=== PATIENT | female | born 1980 | race African-American/Black ===

== ENCOUNTER 2018-01-12 11:55 | Inpatient (IN) | payer OTHER ==
[2018-01-12 13:47] VITALS: BMI 34.7
--- NOTE | 2018-01-12 14:23 | HP ---
Admission ROS [facility] Chief Complaint: REHAB TX FOR DRUG AND ALCOHOL ADDICTION Allergies/Adverse Reactions: Allergies Allergy/AdvReac Type Severity Reaction Status Date / Time onion Allergy Severe Hives Verified 01/12/18 13:51 History of Present Illness: 37 Y/O FEMALE WITH A HX OF ALCOHOL AND MARIJUANA DEPENDENCE AND SOMETIMES OPIATES SEEKING REHAB TX. PT WAS REFERRED HERE TO REHAB FROM [facility] WHERE SHE WAS INPATIENT FOR MENTAL HEALTH- FOR SUICIDAL IDEATION/ DEPRESSION FROM 12/24/17 TO 01/12/18. HX MDD WITH PSYCHOTIC FEATURES. Exam Limitations: No Limitations - Ebola screening Have you traveled outside of the country in the last 21 days: No Have you had contact with anyone from an Ebola affected area: No Have you been sick,other than usual withdrawal symptoms: No Do you have a fever: No - Review of Systems Constitutional: Changes in sleep (TAKES AMBIEN FOR SLEEP) EENT: reports: Dental Problems (BLEEDING GUMS/CAVITIES), Throat Swelling (WITH ALLERGY TO ONIONS) Respiratory: reports: No Symptoms reported Cardiac: reports: Lightheadedness GI: reports: Constipated, Poor Fluid Intake : reports: Burning Musculoskeletal: reports: Joint Pain (RIGHT KNEE CRACKS) Integumentary: reports: No Symptoms Reported Neuro: reports: Dizziness Endocrine: reports: No Symptoms Reported Hematology: reports: Anemia Psychiatric: reports: Orientated x3, Anxious, Depressed Other Systems: Reviewed and Negative Patient History - Patient Medical History Hx Anemia: Yes (NO MEDS) Hx Asthma: No Hx Chronic Obstructive Pulmonary Disease (COPD): No Hx Hypertension: No Hx Hypercholesterolemia: No HX Cerebrovascular Accident: No Hx Seizures: No Hx Diabetes: No Hx Gastrointestinal Disorders: Yes (HEARTBURN) Hx Sexually Transmitted Disorders: Yes (CHLAMYDIA [place]) Hx Thyroid Disease: Yes (POSSIBLE GOITER--DID NOT FOLLOW UP WITH ULTRASOUND SCHEDULE) Hx Human Immunodeficiency Virus (HIV): No (NEGATIVE HX) Hx Hepatitis C: No Hx Depression: Yes Hx Suicide Attempt: Yes (TIED WIRE ON NECK 2015;DENIES S/I TODAY.) Hx Bipolar Disorder: No Hx Schizophrenia: No - Patient Surgical History Past Surgical History: Yes Hx Section: Yes (IN 1997) Other Surgical History: TUBAL LIGATION IN 2001 Anesthesia Reaction: No - PPD History Previous Implant?: Yes Documented Results: Negative w/o proof Implanted On Prior [facility] Admission?: No PPD to be Administered?: Yes - Reproductive History Patient is a Female of Child Bearing Age (11 -55 yrs old): Yes Last Menstrual Period: 12/19/17 Patient : No - Smoking Cessation Smoking history: Current every day smoker Have you smoked in the past 12 months: Yes Aproximately how many cigarettes per day: 20 Hx Chewing Tobacco Use: No Initiated information on smoking cessation: Yes 'Breaking Loose' booklet given: 01/12/18 - Substance & Tx. History Hx Alcohol Use: Yes (VODKA/BEER) Hx Substance Use: Yes (MARIJUANA/HYDROCODONES/PERCOCETS) Substance Use Type: Alcohol, Marijuana, Opiates Hx Substance Use Treatment: Yes (LAST TX AT [facility]) - Substances Abused Alcohol Route: Oral Frequency: Daily Amount used: 1 pint Vodka and 120 oz beer Age of first use: 13 Date of Last Use: 10/01/17 Marijuana/Hashish Route: Smoking Frequency: Daily Amount used: $30 Age of first use: 16 Date of Last Use: 12/26/17 Family Disease History - Family Disease History Family Disease History: Heart Disease: Father (SD-), CA: Mother (BREAST CA-) Admission Physical Exam [facility] - Vital Signs Vital Signs: Vital Signs - 24 hr 01/12/18 13:44 Temperature 98.0 F Pulse Rate 90 Respiratory 20 Rate Blood Pressure 127/92 - Physical General Appearance: Yes: No Apparent Distress, Anxious HEENTM: Yes: EOMI, Normocephalic, DOM, Pharynx Normal Respiratory: Yes: Chest Non-Tender, Lungs Clear, Normal Breath Sounds, No Respiratory Distress Neck: Yes: Supple, Trachea in good position Breast: Yes: Breast Exam Deferred Cardiology: Yes: Regular Rhythm, Regular Rate, S1, S2 Abdominal: Yes: Normal Bowel Sounds, Non Tender, Flat Genitourinary: Yes: Other (N/C) Back: Yes: Within Normal Limits Musculoskeletal: Yes: full range of Motion, Gait Steady Extremities: Yes: Normal Range of Motion, Non-Tender Neurological: Yes: envelope folder [id number] NML intact, Fully Oriented, Alert, Motor Strength 5/5 Integumentary: Yes: Dry, Warm Lymphatic: Yes: Within Normal Limits - Diagnostic (1) Alcohol dependence with uncomplicated withdrawal Current Visit: Yes Status: Chronic (2) Cannabis dependence, uncomplicated Current Visit: Yes Status: Chronic (3) History of anemia Current Visit: Yes Status: Acute (4) Hx of major depression Current Visit: Yes Status: Chronic Cleared for Admission [facility] - Detox or Rehab Claeared for Rehab Admission: Yes [facility] Breath Alcohol Content Breath Alcohol Content: 0 Urine Drug Screen - Results Drug Screen Negative: Yes Urine Drug Screen Results: TCA-Tricyclic Antidepress Inpatient Rehab Admission - Initial Determination Are CD services needed?: Yes Free of communicable disease: Yes Not in need of hospitalization: Yes - Rehab Admission Criteria Patient is meeting Inpatient Rehab admission criteria:: Yes
[2018-01-12] MEDS ORDERED: MAGNESIUM CITRATE 300 ML BOTTLE PO PRN (14:54)
[2018-01-12] MEDS ORDERED: NICOTINE POLACRILEX 4 MG GUM BC PRN (14:54)
[2018-01-12] MEDS ORDERED: P-EPHED 60MG/TRIPROLIDI 2.5MG TABLET PO PRN (14:54)
[2018-01-12] MEDS ORDERED: ACETAMINOPHEN 325 MG TABLET (FP) PO PRN (14:54)
[2018-01-12] MEDS ORDERED: MAG HYDROX/AL HYDROX/SIMETH 30 ML UNIT-DOSE CUP PO PRN (14:54)
[2018-01-12] MEDS ORDERED: LOPERAMIDE HCL 2 MG CAPSULE PO PRN (14:54)
[2018-01-12] MEDS ORDERED: TUBERCULIN PPD 5 TU/0.1ML VIAL ID ONE (17:00)
[2018-01-12] MEDS: NICOTINE 21 MG/24 HOURS TOPICAL PATCH TD SCH (17:13)
--- NOTE | 2018-01-12 20:49 | PN ---
[facility] Progress Note Note: As per nursing report new admission medications are: Buspar 10mg po tid Seroquel XR 400mg po qhs Depakote 500mg po bid Wellbutrin 100mg po bid Medication list has been checked, medications ordered elecronically as per patient request.
[2018-01-12] MEDS: diphenhydrAMINE HCL 25 MG CAPSULE (FP) PO PRN (21:25)
[2018-01-12] MEDS: THIAMINE HCL 100 MG TABLET (FP) PO SCH (21:25)
[2018-01-12] MEDS: DIVALPROEX SODIUM 500 MG TABLET E.C. PO SCH (21:25)
[2018-01-12] MEDS: busPIRone HCL 10 MG TABLET (FP) PO SCH (21:25)
[2018-01-12] MEDS ORDERED: buPROPion HCL 100 MG TABLET PO SCH (22:00)
[2018-01-12 23:03] LABS: URINE APPEARANCE SLCLOUDY; URINE BILIRUBIN NEGATIVE (<2.0 mg/dL); URINE COLOR DKYELLOW; URINE GLUCOSE (UA) NEGATIVE (NEGATIVE); URINE KETONE NEGATIVE (NEGATIVE); URINE LEUK ESTERASE NEGATIVE (NEGATIVE); URINE NITRITE NEGATIVE (NEGATIVE); URINE PROTEIN NEGATIVE (NEGATIVE); URINE UROBILINOGEN NEGATIVE mg/dL (0.2-1.0)
[2018-01-13] MEDS: busPIRone HCL 10 MG TABLET (FP) PO SCH ×3 (06:11→21:43)
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
[2018-01-13] MEDS: DIVALPROEX SODIUM 500 MG TABLET E.C. PO SCH ×2 (10:03→21:43)
[2018-01-13] MEDS: PRENATAL VITAMINS W/ FOLIC ACID TABLET (FP) PO SCH (10:03)
[2018-01-13] MEDS: NICOTINE 21 MG/24 HOURS TOPICAL PATCH TD SCH (10:04)
[2018-01-13] MEDS: buPROPion HCL 100 MG TABLET PO SCH ×2 (10:29→21:43)
[2018-01-13 11:23] LABS: HEMATOCRIT 36.4 % (32.4-45.2); HEMOGLOBIN 11.8 GM/dL (10.7-15.3); MCH 23.2 pg (25.7-33.7); MCHC 32.4 g/dl (32.0-36.0); MEAN CELL VOLUME 71.6 fl (80-96); MEAN PLT VOLUME 10.7 fl (7.5-11.1); PLATELET COUNT 205 K/MM3 (134-434); RBC 5.09 M/mm3 (3.60-5.2); RDW 16.5 % (11.6-15.6); WHITE BLOOD COUNT 7.1 K/mm3 (4.0-10.0)
--- NOTE | 2018-01-13 11:25 | EKG ---
Test Reason : Blood Pressure : / mmHG Vent. Rate : 086 BPM Atrial Rate : 086 BPM P-R Int : 198 ms QRS Dur : 078 ms QT Int : 358 ms P-R-T Axes : 051 046 044 degrees QTc Int : 428 ms NORMAL SINUS RHYTHM NORMAL ECG WHEN COMPARED WITH ECG OF 12-JAN-2018 22:03, NO SIGNIFICANT CHANGE WAS FOUND Confirmed by ASHANTI ELIZONDO MD ([id number]) on 01/13/2018 11:24:49 AM Referred By: Elie TELLO Confirmed By:ASHANTI ELIZONDO MD
[2018-01-13 11:27] LABS: CHLORIDE 106 mmol/L (98-107); POTASSIUM 4.5 mmol/L (3.5-5.1); SODIUM 139 mmol/L (136-145)
[2018-01-13 11:41] LABS: ALBUMIN 3.7 g/dl (3.4-5.0); ALK PHOS 61 U/L (45-117); ANION GAP 6 (8-16); BLOOD UREA NITROGEN 15 mg/dL (7-18); CALCIUM 9.1 mg/dL (8.5-10.1); CO2 27 mmol/L (21-32); CREATININE 0.8 mg/dL (0.55-1.02); GLUCOSE,RANDOM 105 mg/dL (74-106); SGOT/AST 8 U/L (15-37); SGPT/ALT 8 U/L (12-78); TOT PROT 7.1 g/dl (6.4-8.2)
[2018-01-13 11:53] LABS: BILIRUBIN,TOTAL < 0.1 mg/dL (0.2-1.0)
[2018-01-13 11:58] LABS: SICKLE CELL SCREEN NEGATIVE (NEGATIVE)
--- NOTE | 2018-01-13 14:53 | PN ---
[facility] Progress Note Note: Patient c/o of pain after urination, which started yesterday. Denies any vaginal discharge or hematuria or frequency. Vital Signs Temperature 98.3 F 01/13/18 06:46 Pulse Rate 82 01/13/18 06:46 Respiratory Rate 18 01/13/18 06:46 Blood Pressure 101/80 01/13/18 06:46 O2 Sat by Pulse Oximetry (%) Laboratory Last Values WBC 7.1 K/mm3 (4.0-10.0) 01/13/18 06:00 RBC 5.09 M/mm3 (3.60-5.2) 01/13/18 06:00 Hgb 11.8 GM/dL (10.7-15.3) 01/13/18 06:00 Hct 36.4 % (32.4-45.2) 01/13/18 06:00 MCV 71.6 fl (80-96) L 01/13/18 06:00 MCH 23.2 pg (25.7-33.7) L 01/13/18 06:00 MCHC 32.4 g/dl (32.0-36.0) 01/13/18 06:00 RDW 16.5 % (11.6-15.6) H 01/13/18 06:00 Plt Count 205 K/MM3 (134-434) 01/13/18 06:00 MPV 10.7 fl (7.5-11.1) 01/13/18 06:00 Sickle Cell Screen Negative (NEGATIVE) 01/13/18 06:00 Sodium 139 mmol/L (136-145) 01/13/18 06:00 Potassium 4.5 mmol/L (3.5-5.1) 01/13/18 06:00 Chloride 106 mmol/L (98-107) 01/13/18 06:00 Carbon Dioxide 27 mmol/L (21-32) 01/13/18 06:00 Anion Gap 6 (8-16) L 01/13/18 06:00 BUN 15 mg/dL (7-18) 01/13/18 06:00 Creatinine 0.8 mg/dL (0.55-1.02) 01/13/18 06:00 Creat Clearance w eGFR > 60 (>60) 01/13/18 06:00 Random Glucose 105 mg/dL (74-106) 01/13/18 06:00 Calcium 9.1 mg/dL (8.5-10.1) 01/13/18 06:00 Total Bilirubin < 0.1 mg/dL (0.2-1.0) L 01/13/18 06:00 AST 8 U/L (15-37) L 01/13/18 06:00 ALT 8 U/L (12-78) L 01/13/18 06:00 Alkaline Phosphatase 61 U/L (45-117) 01/13/18 06:00 Total Protein 7.1 g/dl (6.4-8.2) 01/13/18 06:00 Albumin 3.7 g/dl (3.4-5.0) 01/13/18 06:00 Urine Color Dkyellow 01/12/18 22:48 Urine Appearance Slcloudy 01/12/18 22:48 Urine pH 7.0 (5.0-8.0) 01/12/18 22:48 Ur Specific [place] 1.029 (1.001-1.035) 01/12/18 22:48 Urine Protein Negative (NEGATIVE) 01/12/18 22:48 Urine Glucose (UA) Negative (NEGATIVE) 01/12/18 22:48 Urine Ketones Negative (NEGATIVE) 01/12/18 22:48 Urine Blood Negative (NEGATIVE) 01/12/18 22:48 Urine Nitrite Negative (NEGATIVE) 01/12/18 22:48 Urine Bilirubin Negative (<2.0 mg/dL) 01/12/18 22:48 Urine Urobilinogen Negative mg/dL (0.2-1.0) 01/12/18 22:48 Ur Leukocyte Esterase Negative (NEGATIVE) 01/12/18 22:48 Valproic Acid 96 ug/ml (50-100) 01/13/18 10:30 RPR Titer Nonreactive (NONREACTIVE) 01/13/18 06:00 Patient AOX3 , in no apparent distress No pelvic or abdominal tenderness + dysuria Plan: Increase fluids U/A continue to monitor
[2018-01-13 18:01] LABS: URINE APPEARANCE SLCLOUDY; URINE BILIRUBIN NEGATIVE (<2.0 mg/dL); URINE COLOR YELLOW; URINE GLUCOSE (UA) NEGATIVE (NEGATIVE); URINE KETONE TRACE (NEGATIVE); URINE LEUK ESTERASE NEGATIVE (NEGATIVE); URINE NITRITE NEGATIVE (NEGATIVE); URINE PROTEIN NEGATIVE (NEGATIVE); URINE UROBILINOGEN NEGATIVE mg/dL (0.2-1.0)
[2018-01-13] MEDS: THIAMINE HCL 100 MG TABLET (FP) PO SCH (21:43)
[2018-01-13] MEDS: MELATONIN 5 MG TABLETS PO PRN (21:44)
[2018-01-14] MEDS: busPIRone HCL 10 MG TABLET (FP) PO SCH ×3 (06:17→21:29)
[2018-01-14] MEDS: PRENATAL VITAMINS W/ FOLIC ACID TABLET (FP) PO SCH (10:11)
[2018-01-14] MEDS: DIVALPROEX SODIUM 500 MG TABLET E.C. PO SCH ×2 (10:11→21:29)
[2018-01-14] MEDS: buPROPion HCL 100 MG TABLET PO SCH ×2 (10:11→17:02)
[2018-01-14] MEDS: NICOTINE 21 MG/24 HOURS TOPICAL PATCH TD SCH (10:12)
[2018-01-14] MEDS: THIAMINE HCL 100 MG TABLET (FP) PO SCH (21:29)
[2018-01-14] MEDS: diphenhydrAMINE HCL 25 MG CAPSULE (FP) PO PRN (21:29)
[2018-01-14] MEDS: MAGNESIUM HYDROX 2400MG/30ML ORAL SUSPENSION 30 ML CUP PO PRN (21:31)
[2018-01-14] MEDS: MELATONIN 5 MG TABLETS PO PRN (21:31)
[2018-01-15] MEDS: busPIRone HCL 10 MG TABLET (FP) PO SCH ×3 (06:39→21:37)
[2018-01-15] MEDS: DIVALPROEX SODIUM 500 MG TABLET E.C. PO SCH ×2 (09:38→21:37)
[2018-01-15] MEDS: buPROPion HCL 100 MG TABLET PO SCH ×2 (09:38→18:03)
[2018-01-15] MEDS: PRENATAL VITAMINS W/ FOLIC ACID TABLET (FP) PO SCH (09:38)
[2018-01-15] MEDS: NICOTINE 21 MG/24 HOURS TOPICAL PATCH TD SCH (09:39)
[2018-01-15] MEDS: MAGNESIUM HYDROX 2400MG/30ML ORAL SUSPENSION 30 ML CUP PO PRN (09:40)
[2018-01-15] MEDS: MINERAL OIL/PETROLAT/WATER TOPICAL CREAM 454 GM JAR TP PRN (14:16)
[2018-01-15] MEDS ORDERED: PT OWN MED DRAWER 7, Y5N ONE (14:22)
[2018-01-15] MEDS: THIAMINE HCL 100 MG TABLET (FP) PO SCH (21:37)
[2018-01-16] MEDS: busPIRone HCL 10 MG TABLET (FP) PO SCH ×3 (06:45→21:46)
--- NOTE | 2018-01-16 08:33 | EKG ---
Test Reason : Blood Pressure : / mmHG Vent. Rate : 079 BPM Atrial Rate : 079 BPM P-R Int : 212 ms QRS Dur : 084 ms QT Int : 384 ms P-R-T Axes : 061 047 047 degrees QTc Int : 440 ms SINUS RHYTHM WITH 1ST DEGREE A-V BLOCK POSSIBLE LEFT ATRIAL ENLARGEMENT BORDERLINE ECG NO PREVIOUS ECGS AVAILABLE Confirmed by NAREN CRAFT MD ([id number]) on 01/16/2018 8:33:27 AM Referred By: Confirmed By:NAREN CRAFT MD
[2018-01-16] MEDS: NICOTINE 21 MG/24 HOURS TOPICAL PATCH TD SCH (10:09)
[2018-01-16] MEDS: DIVALPROEX SODIUM 500 MG TABLET E.C. PO SCH ×2 (10:09→21:46)
[2018-01-16] MEDS: buPROPion HCL 100 MG TABLET PO SCH ×2 (10:09→17:36)
[2018-01-16] MEDS: MINERAL OIL/PETROLAT/WATER TOPICAL CREAM 454 GM JAR TP PRN (10:09)
[2018-01-16] MEDS: PRENATAL VITAMINS W/ FOLIC ACID TABLET (FP) PO SCH (10:09)
[2018-01-16] MEDS: IBUPROFEN 400 MG TABLET (FP) PO PRN (19:38)
[2018-01-16] MEDS ORDERED: PT OWN MED DRAWER 7, Y5N ONE (19:55)
[2018-01-16] MEDS: THIAMINE HCL 100 MG TABLET (FP) PO SCH (21:45)
[2018-01-16] MEDS: MELATONIN 5 MG TABLETS PO PRN (21:47)
[2018-01-17] MEDS: busPIRone HCL 10 MG TABLET (FP) PO SCH ×3 (06:28→21:23)
[2018-01-17] MEDS: NICOTINE 21 MG/24 HOURS TOPICAL PATCH TD SCH (10:06)
[2018-01-17] MEDS: DIVALPROEX SODIUM 500 MG TABLET E.C. PO SCH ×2 (10:06→21:23)
[2018-01-17] MEDS: PRENATAL VITAMINS W/ FOLIC ACID TABLET (FP) PO SCH (10:07)
[2018-01-17] MEDS: buPROPion HCL 100 MG TABLET PO SCH ×2 (10:07→17:22)
[2018-01-17] MEDS: MELATONIN 5 MG TABLETS PO PRN (21:23)
[2018-01-17] MEDS: THIAMINE HCL 100 MG TABLET (FP) PO SCH (21:23)
[2018-01-18] MEDS: busPIRone HCL 10 MG TABLET (FP) PO SCH ×3 (06:18→21:29)
[2018-01-18] MEDS: DIVALPROEX SODIUM 500 MG TABLET E.C. PO SCH ×2 (09:58→21:29)
[2018-01-18] MEDS: NICOTINE 21 MG/24 HOURS TOPICAL PATCH TD SCH (09:58)
[2018-01-18] MEDS: buPROPion HCL 100 MG TABLET PO SCH ×2 (09:58→17:03)
[2018-01-18] MEDS: PRENATAL VITAMINS W/ FOLIC ACID TABLET (FP) PO SCH (09:58)
[2018-01-18] MEDS: MINERAL OIL/PETROLAT/WATER TOPICAL CREAM 454 GM JAR TP PRN (10:00)
[2018-01-18] MEDS ORDERED: PT OWN MED DRAWER 7, Y5N ONE (10:00)
[2018-01-18] MEDS: MELATONIN 5 MG TABLETS PO PRN (21:29)
[2018-01-18] MEDS: diphenhydrAMINE HCL 25 MG CAPSULE (FP) PO PRN (21:29)
[2018-01-18] MEDS: THIAMINE HCL 100 MG TABLET (FP) PO SCH (21:29)
[2018-01-19] MEDS: busPIRone HCL 10 MG TABLET (FP) PO SCH ×3 (06:15→21:30)
[2018-01-19] MEDS: buPROPion HCL 100 MG TABLET PO SCH ×2 (09:47→17:08)
[2018-01-19] MEDS: DIVALPROEX SODIUM 500 MG TABLET E.C. PO SCH ×2 (09:47→21:29)
[2018-01-19] MEDS: PRENATAL VITAMINS W/ FOLIC ACID TABLET (FP) PO SCH (09:47)
[2018-01-19] MEDS: NICOTINE 21 MG/24 HOURS TOPICAL PATCH TD SCH (09:48)
[2018-01-19] MEDS: MAGNESIUM HYDROX 2400MG/30ML ORAL SUSPENSION 30 ML CUP PO PRN (17:09)
[2018-01-19] MEDS ORDERED: PT OWN MED DRAWER 7, Y5N ONE (20:27)
[2018-01-19] MEDS: THIAMINE HCL 100 MG TABLET (FP) PO SCH (21:30)
[2018-01-19] MEDS: MELATONIN 5 MG TABLETS PO PRN (21:30)
[2018-01-19] MEDS: diphenhydrAMINE HCL 25 MG CAPSULE (FP) PO PRN (21:30)
[2018-01-20] MEDS: busPIRone HCL 10 MG TABLET (FP) PO SCH ×3 (06:26→21:21)
[2018-01-20] MEDS: IBUPROFEN 400 MG TABLET (FP) PO PRN ×3 (06:26→17:51)
[2018-01-20] MEDS: NICOTINE 21 MG/24 HOURS TOPICAL PATCH TD SCH (09:52)
[2018-01-20] MEDS: MINERAL OIL/PETROLAT/WATER TOPICAL CREAM 454 GM JAR TP PRN (09:52)
[2018-01-20] MEDS: DIVALPROEX SODIUM 500 MG TABLET E.C. PO SCH ×2 (09:52→21:21)
[2018-01-20] MEDS: buPROPion HCL 100 MG TABLET PO SCH ×2 (09:52→17:51)
[2018-01-20] MEDS: PRENATAL VITAMINS W/ FOLIC ACID TABLET (FP) PO SCH (09:52)
[2018-01-20] MEDS: MAGNESIUM HYDROX 2400MG/30ML ORAL SUSPENSION 30 ML CUP PO PRN (13:45)
[2018-01-20] MEDS ORDERED: PT OWN MED DRAWER 7, Y5N ONE (20:35)
[2018-01-20] MEDS: diphenhydrAMINE HCL 25 MG CAPSULE (FP) PO PRN (21:21)
[2018-01-20] MEDS: THIAMINE HCL 100 MG TABLET (FP) PO SCH (21:21)
[2018-01-20] MEDS: MELATONIN 5 MG TABLETS PO PRN (21:21)
[2018-01-21] MEDS: IBUPROFEN 400 MG TABLET (FP) PO PRN (06:25)
[2018-01-21] MEDS: busPIRone HCL 10 MG TABLET (FP) PO SCH ×3 (06:25→21:30)
[2018-01-21] MEDS: DIVALPROEX SODIUM 500 MG TABLET E.C. PO SCH ×2 (10:01→21:30)
[2018-01-21] MEDS: buPROPion HCL 100 MG TABLET PO SCH ×2 (10:01→17:06)
[2018-01-21] MEDS: PRENATAL VITAMINS W/ FOLIC ACID TABLET (FP) PO SCH (10:01)
[2018-01-21] MEDS: NICOTINE 21 MG/24 HOURS TOPICAL PATCH TD SCH (10:02)
[2018-01-21] MEDS ORDERED: PT OWN MED DRAWER 7, Y5N ONE (19:41)
[2018-01-21] MEDS: MELATONIN 5 MG TABLETS PO PRN (21:30)
[2018-01-21] MEDS: diphenhydrAMINE HCL 25 MG CAPSULE (FP) PO PRN (21:30)
[2018-01-21] MEDS: THIAMINE HCL 100 MG TABLET (FP) PO SCH (21:30)
[2018-01-22] MEDS: busPIRone HCL 10 MG TABLET (FP) PO SCH ×3 (05:59→21:27)
[2018-01-22] MEDS: buPROPion HCL 100 MG TABLET PO SCH ×2 (10:02→17:01)
[2018-01-22] MEDS: PRENATAL VITAMINS W/ FOLIC ACID TABLET (FP) PO SCH (10:02)
[2018-01-22] MEDS: DIVALPROEX SODIUM 500 MG TABLET E.C. PO SCH ×2 (10:02→21:27)
[2018-01-22] MEDS: NICOTINE 21 MG/24 HOURS TOPICAL PATCH TD SCH (10:03)
[2018-01-22] MEDS: THIAMINE HCL 100 MG TABLET (FP) PO SCH (21:27)
[2018-01-22] MEDS: diphenhydrAMINE HCL 25 MG CAPSULE (FP) PO PRN (21:27)
[2018-01-22] MEDS: MELATONIN 5 MG TABLETS PO PRN (21:27)
[2018-01-23] MEDS: busPIRone HCL 10 MG TABLET (FP) PO SCH ×3 (06:00→21:23)
[2018-01-23] MEDS: PRENATAL VITAMINS W/ FOLIC ACID TABLET (FP) PO SCH (09:54)
[2018-01-23] MEDS: buPROPion HCL 100 MG TABLET PO SCH ×2 (09:54→18:01)
[2018-01-23] MEDS: DIVALPROEX SODIUM 500 MG TABLET E.C. PO SCH ×2 (09:54→21:23)
[2018-01-23] MEDS: NICOTINE 21 MG/24 HOURS TOPICAL PATCH TD SCH (09:55)
[2018-01-23] MEDS: IBUPROFEN 400 MG TABLET (FP) PO PRN (12:01)
[2018-01-23] MEDS ORDERED: PT OWN MED DRAWER 7, Y5N ONE (21:20)
[2018-01-23] MEDS: MINERAL OIL/PETROLAT/WATER TOPICAL CREAM 454 GM JAR TP PRN (21:22)
[2018-01-23] MEDS: THIAMINE HCL 100 MG TABLET (FP) PO SCH (21:22)
[2018-01-23] MEDS: MELATONIN 5 MG TABLETS PO PRN (21:22)
[2018-01-23] MEDS: diphenhydrAMINE HCL 25 MG CAPSULE (FP) PO PRN (21:23)
[2018-01-24] MEDS: busPIRone HCL 10 MG TABLET (FP) PO SCH ×3 (06:30→21:21)
[2018-01-24] MEDS: PRENATAL VITAMINS W/ FOLIC ACID TABLET (FP) PO SCH (09:53)
[2018-01-24] MEDS: DIVALPROEX SODIUM 500 MG TABLET E.C. PO SCH ×2 (09:53→21:21)
[2018-01-24] MEDS: buPROPion HCL 100 MG TABLET PO SCH ×2 (09:54→17:39)
[2018-01-24] MEDS: MINERAL OIL/PETROLAT/WATER TOPICAL CREAM 454 GM JAR TP PRN (09:54)
[2018-01-24] MEDS: NICOTINE 21 MG/24 HOURS TOPICAL PATCH TD SCH (09:54)
[2018-01-24] MEDS: diphenhydrAMINE HCL 25 MG CAPSULE (FP) PO PRN (21:21)
[2018-01-24] MEDS: THIAMINE HCL 100 MG TABLET (FP) PO SCH (21:21)
[2018-01-24] MEDS: MELATONIN 5 MG TABLETS PO PRN (21:21)
[2018-01-25] MEDS: busPIRone HCL 10 MG TABLET (FP) PO SCH ×3 (06:33→21:36)
[2018-01-25] MEDS: DIVALPROEX SODIUM 500 MG TABLET E.C. PO SCH ×2 (09:57→21:36)
[2018-01-25] MEDS: NICOTINE 21 MG/24 HOURS TOPICAL PATCH TD SCH (09:57)
[2018-01-25] MEDS: PRENATAL VITAMINS W/ FOLIC ACID TABLET (FP) PO SCH (09:57)
[2018-01-25] MEDS: buPROPion HCL 100 MG TABLET PO SCH ×2 (09:57→18:03)
[2018-01-25] MEDS: MAGNESIUM HYDROX 2400MG/30ML ORAL SUSPENSION 30 ML CUP PO PRN (18:04)
[2018-01-25] MEDS: THIAMINE HCL 100 MG TABLET (FP) PO SCH (21:36)
[2018-01-25] MEDS: MELATONIN 5 MG TABLETS PO PRN (21:37)
[2018-01-26] MEDS: busPIRone HCL 10 MG TABLET (FP) PO SCH ×3 (06:45→21:39)
[2018-01-26] MEDS: PRENATAL VITAMINS W/ FOLIC ACID TABLET (FP) PO SCH (10:05)
[2018-01-26] MEDS: buPROPion HCL 100 MG TABLET PO SCH ×2 (10:05→17:05)
[2018-01-26] MEDS: DIVALPROEX SODIUM 500 MG TABLET E.C. PO SCH ×2 (10:05→21:39)
[2018-01-26] MEDS: MINERAL OIL/PETROLAT/WATER TOPICAL CREAM 454 GM JAR TP PRN (10:06)
[2018-01-26] MEDS ORDERED: PT OWN MED DRAWER 7, Y5N ONE (10:07)
[2018-01-26] MEDS: NICOTINE 21 MG/24 HOURS TOPICAL PATCH TD SCH (10:07)
[2018-01-26] MEDS: MELATONIN 5 MG TABLETS PO PRN (21:39)
[2018-01-26] MEDS: diphenhydrAMINE HCL 25 MG CAPSULE (FP) PO PRN (21:39)
[2018-01-26] MEDS: THIAMINE HCL 100 MG TABLET (FP) PO SCH (21:39)
[2018-01-27] MEDS: busPIRone HCL 10 MG TABLET (FP) PO SCH ×3 (06:46→21:31)
[2018-01-27] MEDS: DIVALPROEX SODIUM 500 MG TABLET E.C. PO SCH ×2 (10:25→21:31)
[2018-01-27] MEDS: buPROPion HCL 100 MG TABLET PO SCH ×2 (10:25→17:48)
[2018-01-27] MEDS: PRENATAL VITAMINS W/ FOLIC ACID TABLET (FP) PO SCH (10:25)
[2018-01-27] MEDS: NICOTINE 21 MG/24 HOURS TOPICAL PATCH TD SCH (10:27)
[2018-01-27] MEDS ORDERED: BENZOCAINE 20 % GEL 9 GM TUBE MM PRN (14:42)
--- NOTE | 2018-01-27 14:44 | PN ---
S Progress Note Note: c/o sensitive teeth and gums. Vital Signs Temperature 97.3 F L 01/27/18 06:48 Pulse Rate 97 H 01/27/18 06:48 Respiratory Rate 18 01/27/18 06:48 Blood Pressure 121/78 01/27/18 06:48 O2 Sat by Pulse Oximetry (%) Laboratory Last Values WBC 7.1 K/mm3 (4.0-10.0) 01/13/18 06:00 RBC 5.09 M/mm3 (3.60-5.2) 01/13/18 06:00 Hgb 11.8 GM/dL (10.7-15.3) 01/13/18 06:00 Hct 36.4 % (32.4-45.2) 01/13/18 06:00 MCV 71.6 fl (80-96) L 01/13/18 06:00 MCH 23.2 pg (25.7-33.7) L 01/13/18 06:00 MCHC 32.4 g/dl (32.0-36.0) 01/13/18 06:00 RDW 16.5 % (11.6-15.6) H 01/13/18 06:00 Plt Count 205 K/MM3 (134-434) 01/13/18 06:00 MPV 10.7 fl (7.5-11.1) 01/13/18 06:00 Sickle Cell Screen Negative (NEGATIVE) 01/13/18 06:00 Sodium 139 mmol/L (136-145) 01/13/18 06:00 Potassium 4.5 mmol/L (3.5-5.1) 01/13/18 06:00 Chloride 106 mmol/L (98-107) 01/13/18 06:00 Carbon Dioxide 27 mmol/L (21-32) 01/13/18 06:00 Anion Gap 6 (8-16) L 01/13/18 06:00 BUN 15 mg/dL (7-18) 01/13/18 06:00 Creatinine 0.8 mg/dL (0.55-1.02) 01/13/18 06:00 Creat Clearance w eGFR > 60 (>60) 01/13/18 06:00 Random Glucose 105 mg/dL (74-106) 01/13/18 06:00 Calcium 9.1 mg/dL (8.5-10.1) 01/13/18 06:00 Total Bilirubin < 0.1 mg/dL (0.2-1.0) L 01/13/18 06:00 AST 8 U/L (15-37) L 01/13/18 06:00 ALT 8 U/L (12-78) L 01/13/18 06:00 Alkaline Phosphatase 61 U/L (45-117) 01/13/18 06:00 Total Protein 7.1 g/dl (6.4-8.2) 01/13/18 06:00 Albumin 3.7 g/dl (3.4-5.0) 01/13/18 06:00 Urine Color Yellow 01/13/18 14:45 Urine Appearance Slcloudy 01/13/18 14:45 Urine pH 7.0 (5.0-8.0) 01/13/18 14:45 Ur Specific [place] 1.021 (1.001-1.035) 01/13/18 14:45 Urine Protein Negative (NEGATIVE) 01/13/18 14:45 Urine Glucose (UA) Negative (NEGATIVE) 01/13/18 14:45 Urine Ketones Trace (NEGATIVE) H 01/13/18 14:45 Urine Blood Negative (NEGATIVE) 01/13/18 14:45 Urine Nitrite Negative (NEGATIVE) 01/13/18 14:45 Urine Bilirubin Negative (<2.0 mg/dL) 01/13/18 14:45 Urine Urobilinogen Negative mg/dL (0.2-1.0) 01/13/18 14:45 Ur Leukocyte Esterase Negative (NEGATIVE) 01/13/18 14:45 Valproic Acid 96 ug/ml (50-100) 01/13/18 10:30 RPR Titer Nonreactive (NONREACTIVE) 01/13/18 06:00 anbesol PRN Continue to monitor
[2018-01-27] MEDS ORDERED: PT OWN MED DRAWER 7, Y5N ONE (20:35)
[2018-01-27] MEDS: THIAMINE HCL 100 MG TABLET (FP) PO SCH (21:31)
[2018-01-27] MEDS: MELATONIN 5 MG TABLETS PO PRN (21:32)
[2018-01-28] MEDS: busPIRone HCL 10 MG TABLET (FP) PO SCH ×3 (06:37→21:41)
[2018-01-28] MEDS: buPROPion HCL 100 MG TABLET PO SCH ×2 (10:25→17:10)
[2018-01-28] MEDS: NICOTINE 21 MG/24 HOURS TOPICAL PATCH TD SCH (10:25)
[2018-01-28] MEDS: DIVALPROEX SODIUM 500 MG TABLET E.C. PO SCH ×2 (10:25→21:41)
[2018-01-28] MEDS: MINERAL OIL/PETROLAT/WATER TOPICAL CREAM 454 GM JAR TP PRN (10:25)
[2018-01-28] MEDS: PRENATAL VITAMINS W/ FOLIC ACID TABLET (FP) PO SCH (10:25)
[2018-01-28] MEDS ORDERED: PT OWN MED DRAWER 7, Y5N ONE (20:43)
[2018-01-28] MEDS: THIAMINE HCL 100 MG TABLET (FP) PO SCH (21:41)
[2018-01-28] MEDS: diphenhydrAMINE HCL 25 MG CAPSULE (FP) PO PRN (21:41)
[2018-01-28] MEDS: MELATONIN 5 MG TABLETS PO PRN (21:41)
[2018-01-29] MEDS: busPIRone HCL 10 MG TABLET (FP) PO SCH ×3 (06:36→21:50)
[2018-01-29] MEDS: buPROPion HCL 100 MG TABLET PO SCH ×2 (10:13→17:29)
[2018-01-29] MEDS: DIVALPROEX SODIUM 500 MG TABLET E.C. PO SCH ×2 (10:13→21:50)
[2018-01-29] MEDS: PRENATAL VITAMINS W/ FOLIC ACID TABLET (FP) PO SCH (10:13)
[2018-01-29] MEDS: NICOTINE 21 MG/24 HOURS TOPICAL PATCH TD SCH (10:13)
[2018-01-29] MEDS ORDERED: PT OWN MED DRAWER 7, Y5N ONE (19:21)
[2018-01-29] MEDS: THIAMINE HCL 100 MG TABLET (FP) PO SCH (21:50)
[2018-01-29] MEDS: MELATONIN 5 MG TABLETS PO PRN (21:50)
[2018-01-29] MEDS: diphenhydrAMINE HCL 25 MG CAPSULE (FP) PO PRN (21:50)
[2018-01-30] MEDS: busPIRone HCL 10 MG TABLET (FP) PO SCH ×3 (06:31→21:41)
[2018-01-30] MEDS: MENTHOL/PHENOL 1 EACH UD MM PRN ×2 (06:33→17:52)
[2018-01-30] MEDS: buPROPion HCL 100 MG TABLET PO SCH ×2 (10:29→17:52)
[2018-01-30] MEDS: PRENATAL VITAMINS W/ FOLIC ACID TABLET (FP) PO SCH (10:29)
[2018-01-30] MEDS: DIVALPROEX SODIUM 500 MG TABLET E.C. PO SCH ×2 (10:29→21:41)
[2018-01-30] MEDS: NICOTINE 21 MG/24 HOURS TOPICAL PATCH TD SCH (10:29)
[2018-01-30] MEDS: MINERAL OIL/PETROLAT/WATER TOPICAL CREAM 454 GM JAR TP PRN (10:30)
[2018-01-30] MEDS: THIAMINE HCL 100 MG TABLET (FP) PO SCH (21:41)
[2018-01-30] MEDS: diphenhydrAMINE HCL 25 MG CAPSULE (FP) PO PRN (21:42)
[2018-01-31] MEDS: busPIRone HCL 10 MG TABLET (FP) PO SCH ×3 (05:58→21:25)
[2018-01-31] MEDS: PRENATAL VITAMINS W/ FOLIC ACID TABLET (FP) PO SCH (10:03)
[2018-01-31] MEDS: DIVALPROEX SODIUM 500 MG TABLET E.C. PO SCH ×2 (10:03→21:25)
[2018-01-31] MEDS: buPROPion HCL 100 MG TABLET PO SCH ×2 (10:03→17:01)
[2018-01-31] MEDS ORDERED: PT OWN MED DRAWER 7, Y5N ONE (10:04)
[2018-01-31] MEDS: MINERAL OIL/PETROLAT/WATER TOPICAL CREAM 454 GM JAR TP PRN (10:07)
[2018-01-31] MEDS: NICOTINE 21 MG/24 HOURS TOPICAL PATCH TD SCH (10:07)
[2018-01-31] MEDS: guaiFENesin/D-METHORPHAN HB 10 ML UNIT-DOSE CUPS PO PRN (21:25)
[2018-01-31] MEDS: MELATONIN 5 MG TABLETS PO PRN (21:25)
[2018-01-31] MEDS: diphenhydrAMINE HCL 25 MG CAPSULE (FP) PO PRN (21:25)
[2018-01-31] MEDS: THIAMINE HCL 100 MG TABLET (FP) PO SCH (21:25)
[2018-02-01] MEDS: busPIRone HCL 10 MG TABLET (FP) PO SCH ×3 (06:40→21:47)
[2018-02-01] MEDS: guaiFENesin/D-METHORPHAN HB 10 ML UNIT-DOSE CUPS PO PRN ×2 (06:41→17:47)
[2018-02-01] MEDS: DIVALPROEX SODIUM 500 MG TABLET E.C. PO SCH ×2 (10:08→21:47)
[2018-02-01] MEDS: PRENATAL VITAMINS W/ FOLIC ACID TABLET (FP) PO SCH (10:08)
[2018-02-01] MEDS: buPROPion HCL 100 MG TABLET PO SCH ×2 (10:08→17:46)
[2018-02-01] MEDS: NICOTINE 21 MG/24 HOURS TOPICAL PATCH TD SCH (10:09)
[2018-02-01] MEDS ORDERED: PT OWN MED DRAWER 7, Y5N ONE ×2 (12:59→18:19)
--- NOTE | 2018-02-01 15:54 | PN ---
[facility] Progress Note Note: c/o of sore throat and constant coughing Vital Signs Temperature 96.9 F L 02/01/18 07:15 Pulse Rate 93 H 02/01/18 07:15 Respiratory Rate 20 02/01/18 07:15 Blood Pressure 109/72 02/01/18 07:15 O2 Sat by Pulse Oximetry (%) Laboratory Last Values WBC 7.1 K/mm3 (4.0-10.0) 01/13/18 06:00 RBC 5.09 M/mm3 (3.60-5.2) 01/13/18 06:00 Hgb 11.8 GM/dL (10.7-15.3) 01/13/18 06:00 Hct 36.4 % (32.4-45.2) 01/13/18 06:00 MCV 71.6 fl (80-96) L 01/13/18 06:00 MCH 23.2 pg (25.7-33.7) L 01/13/18 06:00 MCHC 32.4 g/dl (32.0-36.0) 01/13/18 06:00 RDW 16.5 % (11.6-15.6) H 01/13/18 06:00 Plt Count 205 K/MM3 (134-434) 01/13/18 06:00 MPV 10.7 fl (7.5-11.1) 01/13/18 06:00 Sickle Cell Screen Negative (NEGATIVE) 01/13/18 06:00 Sodium 139 mmol/L (136-145) 01/13/18 06:00 Potassium 4.5 mmol/L (3.5-5.1) 01/13/18 06:00 Chloride 106 mmol/L (98-107) 01/13/18 06:00 Carbon Dioxide 27 mmol/L (21-32) 01/13/18 06:00 Anion Gap 6 (8-16) L 01/13/18 06:00 BUN 15 mg/dL (7-18) 01/13/18 06:00 Creatinine 0.8 mg/dL (0.55-1.02) 01/13/18 06:00 Creat Clearance w eGFR > 60 (>60) 01/13/18 06:00 Random Glucose 105 mg/dL (74-106) 01/13/18 06:00 Calcium 9.1 mg/dL (8.5-10.1) 01/13/18 06:00 Total Bilirubin < 0.1 mg/dL (0.2-1.0) L 01/13/18 06:00 AST 8 U/L (15-37) L 01/13/18 06:00 ALT 8 U/L (12-78) L 01/13/18 06:00 Alkaline Phosphatase 61 U/L (45-117) 01/13/18 06:00 Total Protein 7.1 g/dl (6.4-8.2) 01/13/18 06:00 Albumin 3.7 g/dl (3.4-5.0) 01/13/18 06:00 Urine Color Yellow 01/13/18 14:45 Urine Appearance Slcloudy 01/13/18 14:45 Urine pH 7.0 (5.0-8.0) 01/13/18 14:45 Ur Specific [place] 1.021 (1.001-1.035) 01/13/18 14:45 Urine Protein Negative (NEGATIVE) 01/13/18 14:45 Urine Glucose (UA) Negative (NEGATIVE) 01/13/18 14:45 Urine Ketones Trace (NEGATIVE) H 01/13/18 14:45 Urine Blood Negative (NEGATIVE) 01/13/18 14:45 Urine Nitrite Negative (NEGATIVE) 01/13/18 14:45 Urine Bilirubin Negative (<2.0 mg/dL) 01/13/18 14:45 Urine Urobilinogen Negative mg/dL (0.2-1.0) 01/13/18 14:45 Ur Leukocyte Esterase Negative (NEGATIVE) 01/13/18 14:45 Valproic Acid 96 ug/ml (50-100) 01/13/18 10:30 RPR Titer Nonreactive (NONREACTIVE) 01/13/18 06:00 Sore throat Plan: Throat culture Peridex wash BID PRN Guafinessin 10 ml PRN Increase fluids Continue to monitor
[2018-02-01] MEDS: THIAMINE HCL 100 MG TABLET (FP) PO SCH (21:46)
[2018-02-01] MEDS: CHLORHEXIDINE GLUCONATE 0.12% 15ML CUP MM SCH (21:48)
[2018-02-02] MEDS: busPIRone HCL 10 MG TABLET (FP) PO SCH ×3 (06:39→21:39)
[2018-02-02] MEDS: buPROPion HCL 100 MG TABLET PO SCH ×2 (10:10→17:08)
[2018-02-02] MEDS: CHLORHEXIDINE GLUCONATE 0.12% 15ML CUP MM SCH ×2 (10:11→21:39)
[2018-02-02] MEDS: PRENATAL VITAMINS W/ FOLIC ACID TABLET (FP) PO SCH (10:11)
[2018-02-02] MEDS: NICOTINE 21 MG/24 HOURS TOPICAL PATCH TD SCH (10:11)
[2018-02-02] MEDS: DIVALPROEX SODIUM 500 MG TABLET E.C. PO SCH ×2 (10:11→21:39)
[2018-02-02] MEDS ORDERED: PT OWN MED DRAWER 7, Y5N ONE (11:29)
--- NOTE | 2018-02-02 15:07 | PN ---
[facility] Progress Note Note: Patient continues to c/o sore throat and cough with green sputum. Addressed by [employer] yesterday and throat culture ordered. Results pending. Pt has history of nicotine dependence. Laboratory Tests 01/12/18 01/13/18 01/13/18 22:48 06:00 06:00 WBC 7.1 RBC 5.09 Hgb 11.8 Hct 36.4 MCV 71.6 L MCH 23.2 L MCHC 32.4 RDW 16.5 H Plt Count 205 MPV 10.7 Sickle Cell Screen Negative Sodium 139 Potassium 4.5 Chloride 106 Carbon Dioxide 27 Anion Gap 6 L BUN 15 Creatinine 0.8 Creat Clearance w eGFR > 60 Random Glucose 105 Calcium 9.1 Total Bilirubin < 0.1 L AST 8 L ALT 8 L Alkaline Phosphatase 61 Total Protein 7.1 Albumin 3.7 Urine Color Dkyellow Urine Appearance Slcloudy Urine pH 7.0 Ur Specific [place] 1.029 Urine Protein Negative Urine Glucose (UA) Negative Urine Ketones Negative Urine Blood Negative Urine Nitrite Negative Urine Bilirubin Negative Urine Urobilinogen Negative Ur Leukocyte Esterase Negative Valproic Acid RPR Titer 01/13/18 01/13/18 01/13/18 06:00 10:30 14:45 WBC RBC Hgb Hct MCV MCH MCHC RDW Plt Count MPV Sickle Cell Screen Sodium Potassium Chloride Carbon Dioxide Anion Gap BUN Creatinine Creat Clearance w eGFR Random Glucose Calcium Total Bilirubin AST ALT Alkaline Phosphatase Total Protein Albumin Urine Color Yellow Urine Appearance Slcloudy Urine pH 7.0 Ur Specific [place] 1.021 Urine Protein Negative Urine Glucose (UA) Negative Urine Ketones Trace H Urine Blood Negative Urine Nitrite Negative Urine Bilirubin Negative Urine Urobilinogen Negative Ur Leukocyte Esterase Negative Valproic Acid 96 RPR Titer Nonreactive Vital Signs Temperature 97.3 F L 02/02/18 06:58 Pulse Rate 105 H 02/02/18 06:58 Respiratory Rate 20 02/02/18 06:58 Blood Pressure 114/79 02/02/18 06:58 O2 Sat by Pulse Oximetry (%) Obj: General: alert and oriented x 3. In no acute distress ENT:+PERRLA, +nasal congestion, Pharynx pink and moist Skin: afebrile. Warm and dry Car: S1S2. Resp: faint scattered wheezes, no rales. A/P: Productive cough Pharyngitis Will continue current treatment add Augmentin 875mg BID x 7 days continue to monitor clinically
[2018-02-02] MEDS: AMOX TR/POT CLAV 875MG/125MG TABLETS (FP) PO SCH (17:08)
[2018-02-02] MEDS: MENTHOL/PHENOL 1 EACH UD MM PRN (19:43)
[2018-02-02] MEDS: guaiFENesin/D-METHORPHAN HB 10 ML UNIT-DOSE CUPS PO PRN (19:43)
[2018-02-02] MEDS: THIAMINE HCL 100 MG TABLET (FP) PO SCH (21:39)
[2018-02-02] MEDS: hydrOXYzine PAMOATE 50 MG CAPSULE (FP) PO PRN (21:40)
[2018-02-03] MEDS: busPIRone HCL 10 MG TABLET (FP) PO SCH ×3 (06:20→21:31)
[2018-02-03] MEDS: AMOX TR/POT CLAV 875MG/125MG TABLETS (FP) PO SCH ×2 (07:04→17:47)
[2018-02-03] MEDS: NICOTINE 21 MG/24 HOURS TOPICAL PATCH TD SCH (10:02)
[2018-02-03] MEDS: PRENATAL VITAMINS W/ FOLIC ACID TABLET (FP) PO SCH (10:02)
[2018-02-03] MEDS: DIVALPROEX SODIUM 500 MG TABLET E.C. PO SCH ×2 (10:02→21:30)
[2018-02-03] MEDS: CHLORHEXIDINE GLUCONATE 0.12% 15ML CUP MM SCH ×2 (10:02→21:30)
[2018-02-03] MEDS: buPROPion HCL 100 MG TABLET PO SCH ×2 (10:02→17:47)
[2018-02-03] MEDS: MINERAL OIL/PETROLAT/WATER TOPICAL CREAM 454 GM JAR TP PRN (10:04)
[2018-02-03] MEDS ORDERED: PT OWN MED DRAWER 7, Y5N ONE (20:18)
[2018-02-03] MEDS: THIAMINE HCL 100 MG TABLET (FP) PO SCH (21:31)
[2018-02-03] MEDS: hydrOXYzine PAMOATE 50 MG CAPSULE (FP) PO PRN (21:32)
[2018-02-04] MEDS: busPIRone HCL 10 MG TABLET (FP) PO SCH ×3 (06:37→21:29)
[2018-02-04] MEDS: guaiFENesin/D-METHORPHAN HB 10 ML UNIT-DOSE CUPS PO PRN (06:39)
[2018-02-04] MEDS: AMOX TR/POT CLAV 875MG/125MG TABLETS (FP) PO SCH ×2 (07:07→18:23)
[2018-02-04] MEDS: NICOTINE 21 MG/24 HOURS TOPICAL PATCH TD SCH (10:05)
[2018-02-04] MEDS: PRENATAL VITAMINS W/ FOLIC ACID TABLET (FP) PO SCH (10:05)
[2018-02-04] MEDS: DIVALPROEX SODIUM 500 MG TABLET E.C. PO SCH ×2 (10:05→21:28)
[2018-02-04] MEDS: CHLORHEXIDINE GLUCONATE 0.12% 15ML CUP MM SCH ×2 (10:05→21:28)
[2018-02-04] MEDS: buPROPion HCL 100 MG TABLET PO SCH ×2 (10:05→18:22)
[2018-02-04] MEDS: THIAMINE HCL 100 MG TABLET (FP) PO SCH (21:28)
[2018-02-04] MEDS: hydrOXYzine PAMOATE 50 MG CAPSULE (FP) PO PRN (21:29)
[2018-02-05] MEDS: busPIRone HCL 10 MG TABLET (FP) PO SCH ×3 (06:25→21:31)
[2018-02-05] MEDS: AMOX TR/POT CLAV 875MG/125MG TABLETS (FP) PO SCH ×2 (07:05→17:09)
[2018-02-05] MEDS: DIVALPROEX SODIUM 500 MG TABLET E.C. PO SCH ×2 (10:32→21:31)
[2018-02-05] MEDS: buPROPion HCL 100 MG TABLET PO SCH ×2 (10:32→17:09)
[2018-02-05] MEDS: PRENATAL VITAMINS W/ FOLIC ACID TABLET (FP) PO SCH (10:32)
[2018-02-05] MEDS: NICOTINE 21 MG/24 HOURS TOPICAL PATCH TD SCH (10:32)
[2018-02-05] MEDS: CHLORHEXIDINE GLUCONATE 0.12% 15ML CUP MM SCH ×2 (10:42→21:32)
[2018-02-05] MEDS: THIAMINE HCL 100 MG TABLET (FP) PO SCH (21:31)
[2018-02-05] MEDS: hydrOXYzine PAMOATE 50 MG CAPSULE (FP) PO PRN (21:32)
[2018-02-06] MEDS: busPIRone HCL 10 MG TABLET (FP) PO SCH ×3 (06:39→21:39)
[2018-02-06] MEDS: AMOX TR/POT CLAV 875MG/125MG TABLETS (FP) PO SCH ×2 (07:07→17:36)
[2018-02-06] MEDS: DIVALPROEX SODIUM 500 MG TABLET E.C. PO SCH ×2 (10:17→21:39)
[2018-02-06] MEDS: CHLORHEXIDINE GLUCONATE 0.12% 15ML CUP MM SCH ×2 (10:17→21:39)
[2018-02-06] MEDS: PRENATAL VITAMINS W/ FOLIC ACID TABLET (FP) PO SCH (10:17)
[2018-02-06] MEDS: NICOTINE 21 MG/24 HOURS TOPICAL PATCH TD SCH (10:17)
[2018-02-06] MEDS: buPROPion HCL 100 MG TABLET PO SCH ×2 (10:17→17:36)
[2018-02-06] MEDS: MINERAL OIL/PETROLAT/WATER TOPICAL CREAM 454 GM JAR TP PRN (10:18)
[2018-02-06] MEDS: THIAMINE HCL 100 MG TABLET (FP) PO SCH (21:39)
[2018-02-06] MEDS: hydrOXYzine PAMOATE 50 MG CAPSULE (FP) PO PRN (21:39)
[2018-02-07] MEDS: busPIRone HCL 10 MG TABLET (FP) PO SCH ×3 (06:55→21:34)
[2018-02-07] MEDS: AMOX TR/POT CLAV 875MG/125MG TABLETS (FP) PO SCH ×2 (07:06→18:01)
[2018-02-07] MEDS: DIVALPROEX SODIUM 500 MG TABLET E.C. PO SCH ×2 (10:03→21:34)
[2018-02-07] MEDS: PRENATAL VITAMINS W/ FOLIC ACID TABLET (FP) PO SCH (10:03)
[2018-02-07] MEDS: buPROPion HCL 100 MG TABLET PO SCH ×2 (10:03→18:01)
[2018-02-07] MEDS: NICOTINE 21 MG/24 HOURS TOPICAL PATCH TD SCH (10:04)
[2018-02-07] MEDS: CHLORHEXIDINE GLUCONATE 0.12% 15ML CUP MM SCH (15:30)
[2018-02-07] MEDS: MINERAL OIL/PETROLAT/WATER TOPICAL CREAM 454 GM JAR TP PRN (18:03)
[2018-02-07] MEDS: THIAMINE HCL 100 MG TABLET (FP) PO SCH (21:33)
[2018-02-07] MEDS: hydrOXYzine PAMOATE 50 MG CAPSULE (FP) PO PRN (21:35)
[2018-02-07] MEDS: CHLORHEXIDINE GLUCONATE 118 ML MOUTHWASH MM SCH (21:37)
[2018-02-08] MEDS: busPIRone HCL 10 MG TABLET (FP) PO SCH ×3 (06:34→21:54)
--- NOTE | 2018-02-08 06:41 | PN ---
Psychiatric Progress Note Vital Signs: Vital Signs Period Temp Pulse Resp BP Sys/Warner Pulse Ox Last 24 Hr 96.4 F 95 18-20 130/92 Date of Session: 02/08/18 Chief Complaint:: Discharge Note HPI: Patient addressing Alcohol and Cannabis Dependence, Opioid Abuse comorbid with Nicotine Dependendence, MDD, Substance-Induced Mood Disorder and Substance- Induced Sleep Disorder ROS: Anemia, GERD Current Medications: Active Medications Generic Name Dose Route Start Last Admin Trade Name Freq PRN Reason Stop Dose Admin Acetaminophen 650 mg 01/12/18 14:54 Tylenol - PO Q4H PRN FEVER Al Hydroxide/Mg Hydroxide 30 ml 01/12/18 14:54 Mylanta Oral Suspension - PO Q6H PRN DYSPEPSIA Amoxicillin/Clavulanate Potassium 1 tab 02/02/18 17:30 02/07/18 18:01 Augmentin - 875mg Tablet PO 02/09/18 17:29 1 tab BID@0800,1730 FOX Administration Benzocaine 1 applic 01/27/18 14:42 01/27/18 15:02 Anbesol - MM 1 applic Q2H PRN Administration gum pain Bupropion HCl 100 mg 01/13/18 10:00 02/07/18 18:01 Wellbutrin - PO 100 mg BID@1000,1800 FOX Administration Buspirone HCl 10 mg 01/12/18 22:00 02/07/18 21:34 Buspar - PO 10 mg TID FOX Administration Chlorhexidine Gluconate 15 ml 02/07/18 10:24 02/07/18 21:37 Chlorhexidine Gluconate MM Not Given BID FOX Diphenhydramine HCl 25 mg 01/12/18 14:58 01/31/18 21:25 Benadryl - PO 25 mg TID PRN Administration FOR ITCHING Divalproex Sodium 500 mg 01/12/18 22:00 02/07/18 21:34 Depakote - PO 500 mg BID FOX Administration Eucalyptus/Menthol/Phenol/Sorbitol 1 each 01/12/18 14:54 02/02/18 19:43 Cepastat Lozenge - MM 1 each Q4H PRN Administration SORE THROAT Guaifenesin 10 ml 01/12/18 14:54 02/04/18 06:39 Robitussin Dm - PO 10 ml Q6H PRN Administration COUGH Hydroxyzine Pamoate 50 mg 01/12/18 14:54 02/07/18 21:35 Vistaril - PO 50 mg Q4H PRN Administration AGITATION Ibuprofen 400 mg 01/12/18 14:54 01/23/18 12:01 Motrin - PO 400 mg Q6H PRN Administration Pain level 4-6 Loperamide HCl 4 mg 01/12/18 14:54 Imodium - PO Q6H PRN DIARRHEA Magnesium Citrate 300 ml 01/12/18 14:54 01/15/18 21:37 Citroma - PO 300 ml Q48H PRN Administration CONSTIPATION Magnesium Hydroxide 30 ml 01/12/18 14:54 01/25/18 18:04 Milk Of Magnesia - PO 30 ml DAILY PRN Administration CONSTIPATION Melatonin 5 mg 01/12/18 22:00 01/31/18 21:25 Melatonin PO 5 mg HS PRN Administration INSOMNIA Multi-Ingredient Lotion 1 applic 01/15/18 11:54 02/07/18 18:03 Eucerin (Large Jar) - TP 1 applic BID PRN Administration DRY SKIN Nicotine 21 mg 01/12/18 16:30 02/07/18 10:04 Nicoderm Patch - TD Not Given DAILY FOX Nicotine Polacrilex 4 mg 01/12/18 14:54 Nicorette Gum - BC Q2H PRN NICOTINE REPLACEMENT RX Multivit/Folic Acid/Iron 1 tab 01/13/18 10:00 02/07/18 10:03 Vitamins (Sjr) - PO 1 tab DAILY FOX Administration Pseudoephedrine/Triprolidine 1 combo 01/12/18 14:54 Actifed - PO TID PRN NASAL CONGESTION Quetiapine Fumarate 400 mg 01/12/18 22:00 02/07/18 21:34 Seroquel Xr - PO 400 mg HS FOX Administration Thiamine HCl 100 mg 01/12/18 22:00 02/07/18 21:33 Vitamin B1 - PO 100 mg HS FOX Administration Current Side Effect: No Lab tests ordered: Yes Lab tests reviewed: Yes Provider note:: Patient will complete this program on 02/09/18. She has met his treatment goals and will continue to address his issues in skilled nursing residential treatment at [facility]. She responded well to Wellbutrin 100 mg po BID, Buspar 10 mg po BID, Depakote 500 mg po BID and Seroquel 400 mg po HS. Scripts for these medications [facility] [address] [place] [address]. She is stable for discharge on 02/09/18 Mental Status Exam - Mental Status Exam Alert and Oriented to: Time, Place, Person Cognitive Function: Fair Patient Appearance: Well Groomed Mood: Hopeful, Euthymic Affect: Appropriate Patient Behavior: Cooperative Speech Pattern: Clear Voice Loudness: Normal Thought Process: Intact, Goal Oriented Thought Disorder: Not Present Hallucinations: Denies Suicidal Ideation: Denies Homicidal Ideation: Denies Insight/Judgement: Fair Sleep: Fair Appetite: Good Muscle strength/Tone: Normal Gait/Station: Normal Psychiatric Treatment Plan - Problem List (1) Alcohol dependence Current Visit: Yes (2) Cannabis dependence Current Visit: Yes (3) Opioid abuse Current Visit: Yes (4) Nicotine dependence Current Visit: Yes (5) MDD (major depressive disorder), recurrent, severe, with psychosis Current Visit: Yes (6) Substance induced mood disorder Current Visit: Yes (7) Substance-induced sleep disorder Current Visit: Yes (8) History of anemia Current Visit: Yes (9) GERD (gastroesophageal reflux disease) Current Visit: Yes Initial treatment plan: Patient will be discharged tomorrow and 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
[2018-02-08] MEDS: AMOX TR/POT CLAV 875MG/125MG TABLETS (FP) PO SCH ×2 (07:00→17:45)
[2018-02-08] MEDS: CHLORHEXIDINE GLUCONATE 118 ML MOUTHWASH MM SCH ×2 (10:03→21:54)
[2018-02-08] MEDS: PRENATAL VITAMINS W/ FOLIC ACID TABLET (FP) PO SCH (10:03)
[2018-02-08] MEDS: buPROPion HCL 100 MG TABLET PO SCH ×2 (10:03→17:45)
[2018-02-08] MEDS: DIVALPROEX SODIUM 500 MG TABLET E.C. PO SCH ×2 (10:03→21:54)
[2018-02-08] MEDS: NICOTINE 21 MG/24 HOURS TOPICAL PATCH TD SCH (10:03)
[2018-02-08] MEDS: THIAMINE HCL 100 MG TABLET (FP) PO SCH (21:54)
[2018-02-08] MEDS: diphenhydrAMINE HCL 25 MG CAPSULE (FP) PO PRN (21:56)
[2018-02-09] MEDS: busPIRone HCL 10 MG TABLET (FP) PO SCH (06:32)
[2018-02-09 06:52] VITALS: BP 110/70; PULSE 96; TEMP 98
[2018-02-09] MEDS: AMOX TR/POT CLAV 875MG/125MG TABLETS (FP) PO SCH (07:01)
[2018-02-09] MEDS: PRENATAL VITAMINS W/ FOLIC ACID TABLET (FP) PO SCH (09:36)
[2018-02-09] MEDS: DIVALPROEX SODIUM 500 MG TABLET E.C. PO SCH (09:36)
[2018-02-09] MEDS: buPROPion HCL 100 MG TABLET PO SCH (09:36)
[2018-02-09] MEDS: NICOTINE 21 MG/24 HOURS TOPICAL PATCH TD SCH (09:40)
[2018-02-09] MEDS: CHLORHEXIDINE GLUCONATE 118 ML MOUTHWASH MM SCH (09:40)
== END 2018-02-09 09:45 | disposition home or self-care (01) | DRG 772 ==
LOC: YASAS 11:55 → Y3W 15:46
PROVIDERS: ADMIT Psychiatry & Neurology Psychiatry; ATTEND Psychiatry & Neurology Psychiatry
PROC: HZ42ZZZ Group Counseling for Substance Abuse Treatment, Cognitive-Behavioral (ICD-10-PCS; principal; 2018-01-12)
DX: F10.20 Alcohol dependence, uncomplicated (principal); F11.10 Opioid abuse, uncomplicated; F12.20 Cannabis dependence, uncomplicated; F17.210 Nicotine dependence, cigarettes, uncomplicated; F33.3 Major depressive disorder, recurrent, severe with psychotic symptoms; F19.24 Other psychoactive substance dependence with psychoactive substance-induced mood disorder; F19.282 Other psychoactive substance dependence with psychoactive substance-induced sleep disorder; K21.9 Gastro-esophageal reflux disease without esophagitis; J20.9 Acute bronchitis, unspecified; R30.0 Dysuria; Z87.42 Personal history of other diseases of the female genital tract; Z91.5 Personal history of self-harm; Z59.0 Homelessness
CPT/HCPCS: 36415; 80053; 80164; 81003; 85027; 85660; 86593; 87070; 87086; 93005; 93010